=== PATIENT | male | born 1975 | race Caucasian/White ===

== ENCOUNTER 2017-01-14 16:14 | Emergency (ER) | payer OTHER ==
[~2017-01-14] VITALS: Ht 182.9 cm; Wt 113.4 kg
[2017-01-14 17:50] LABS: BASOPHILS % (AUTO) 0 % (0-10); EOSINOPHILS # (AUTO) 0.2 10^3/uL (0.0-0.3); EOSINOPHILS % (AUTO) 2 % (0-10); LYMPHOCYTES # (AUTO) 2.8 X 10^3 (1.0-4.0); LYMPHOCYTES % (AUTO) 31 % (12-44); MEAN CORPUSCULAR HEMOGLOBIN 31 PG (25-34); MEAN CORPUSCULAR HGB CONC 34 G/DL (32-36); MEAN CORPUSCULAR VOLUME 89 FL (80-99); MEAN PLATELET VOLUME 10.8 FL (7.4-10.4); MONOCYTES # (AUTO) 0.9 X 10^3 (0.0-1.0); MONOCYTES % (AUTO) 9 % (0-12); NEUTROPHILS # (AUTO) 5.4 X 10^3 (1.8-7.8); NEUTROPHILS % (AUTO) 58 % (42-75); PLATELET COUNT 243 10^3/uL (130-400); RED BLOOD COUNT 4.53 10^6/uL (4.35-5.85); RED CELL DISTRIBUTION WIDTH 13.1 % (10.0-14.5); WHITE BLOOD COUNT 9.3 10^3/uL (4.3-11.0)
[2017-01-14 17:53] LABS: PROTHROMBIN TIME PATIENT 12.8 SEC (12.2-14.7)
[2017-01-14] MEDS ORDERED: ASPIRIN 81 MG CHEW (CHILDREN'S ASA) PO ONE (18:00)
[2017-01-14] MEDS ORDERED: RX-NITROGLYCERIN 0.4 MG TAB BTL 25'S SL PRN (18:00)
[2017-01-14 18:03] LABS: ALANINE AMINOTRANSFERASE 18 U/L (0-55); ALBUMIN 4.3 G/DL (3.2-4.5); ANION GAP 11 MMOL/L (5-14); ASPARTATE AMINO TRANSFERASE 18 U/L (5-34); BILIRUBIN,TOTAL 0.4 MG/DL (0.1-1.0); BLOOD UREA NITROGEN 8 MG/DL (7-18); BUN/CREATININE RATIO 8; CALCIUM 9.7 MG/DL (8.5-10.1); CARBON DIOXIDE 23 MMOL/L (21-32); CHLORIDE 105 MMOL/L (98-107); CREATININE SERUM 0.99 MG/DL (0.60-1.30); GFR ESTIMATED > 60; GLUCOSE 125 MG/DL (70-105); MAGNESIUM 1.9 MG/DL (1.8-2.4); POTASSIUM 3.6 MMOL/L (3.6-5.0); SODIUM 139 MMOL/L (135-145); TOTAL PROTEIN 7.5 G/DL (6.4-8.2)
--- NOTE | 2017-01-14 18:03 | ED Chest Pain ---
General Chief Complaint: Cardiac/General Problems Stated Complaint: HIGH BLOOD PRESSURE Nursing Triage Note: PT AMBULATED TO ROOM. PT STATES HE IS HAVING HIGH BLOOD PRESSURE, HANDS ARE TINGLING, PRESSURE IN HIS CHEST ALL FOR ABOUT 2-3 HOURS TODAY. Nursing Sepsis Screen: No Definite Risk Source: patient Exam Limitations: no limitations History of Present Illness Time seen by provider: 17:40 Initial Comments This 41-year-old gentleman with known coronary artery disease and hypertension presents to the emergency room with complaints of chest pressure for a few hours prior to presentation. Associated symptoms include tingling in the extremities and upper back, lightheadedness, and a generalized feeling that something not right. He takes multiple medications for hypertension including furosemide which he stopped about 10 days ago due to hot weather. 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 Blood pressure is notably elevated on assessment. Patient also reports he recently took doxycycline for an inflamed tick bite. He does smoke and does have a history of coronary artery disease with dissolvable stent placement. He reports this was an experimental therapy. He rarely drinks alcohol and denies any drug use. He took his medications except for furosemide this morning. He has not taken any aspirin. He recently moved to the area and has no local providers yet. Patient reports some type of cardiac event in October in which he reports an elevated troponin. This occurred in [place], [place]. A heart catheterization was not performed. Allergies and Home Medications Allergies Coded Allergies: No Known Drug Allergies (Unverified , 01/14/17) Review of Systems Constitutional: no symptoms reported EENTM: No Symptoms Reported Respiratory: No Symptoms Reported Cardiovascular: See HPI Gastrointestinal: No Symptoms Reported Genitourinary: No Symptoms Reported Musculoskeletal: no symptoms reported Skin: no symptoms reported Psychiatric/Neurological: See HPI Endocrine: No Symptoms Reported Hematologic/Lymphatic: No Symptoms Reported Past Pbwlvyk-Bgfmni-Ebusdx Hx Patient Social History Alcohol Use: Denies Use Recreational Drug Use: No Smoking Status: Current Everyday Smoker Type Used: Cigarettes 2nd Hand Smoke Exposure: Yes Recent Foreign Travel: No Contact w/Someone Who Travel: No Recent Infectious Disease Expo: No Recent Hopitalizations: No Seasonal Allergies Seasonal Allergies: No Surgeries HX Surgeries: Yes Surgeries: Coronary Stent (experimental dissolvable stent), Orthopedic (knee) Respiratory Hx Respiratory Disorders: Yes (tobaccoism) Cardiovascular Hx Cardiac Disorders: Yes (cardiomegaly) Cardiac Disorders: Coronary Artery Disease, High Cholesterol, Hypertension Neurological Hx Neurological Disorders: No Reproductive System Hx Reproductive Disorders: No Genitourinary Hx Genitourinary Disorders: No Gastrointestinal Hx Gastrointestinal Disorders: No Musculoskeletal Hx Musculoskeletal Disorders: No Endocrine Hx Endocrine Disorders: No HEENT HX ENT Disorders: No Cancer Hx Cancer: No Psychosocial Hx Psychiatric Problems: Yes Behavioral Health Disorders: Anxiety Integumentary HX Skin/Integumentary Disorder: Yes Family Medical History Significant Family History: Heart Disease, CAD Under 55 Years Old Physical Exam Vital Signs Vital Sign - Last 12Hours 01/14/17 16:26 Temp 98.2 Pulse 87 Resp 20 B/P (MAP) 164/109 Pulse Ox 96 O2 Delivery Room Air Capillary Refill : Less Than 3 Seconds General Appearance: No Apparent Distress, WD/WN HEENT: PERRL/EOMI, Normal ENT Inspection, Pharynx Normal Neck: Normal Inspection Respiratory: Chest Non Tender, Lungs Clear, Normal Breath Sounds, No Accessory Muscle Use, No Respiratory Distress Cardiovascular: Regular Rate, Rhythm, No Edema, No Murmur Gastrointestinal: Normal Bowel Sounds, Non Tender, Soft Extremity: Normal Inspection, Non Tender, No Calf Tenderness, No Pedal Edema, Pedal Edema, Other (negative Katya) Neurologic/Psychiatric: Alert, Oriented x3, No Motor/Sensory Deficits, Normal Mood/Affect, customer advisor specialist II-XII Norm as Tested Skin: Normal Color, Warm/Dry Progress/Results/Core Measures Results/Orders Lab Results Laboratory Tests Test 01/14/17 16:41 Range/Units White Blood Count 9.3 4.3-11.0 10^3/uL Red Blood Count 4.53 4.35-5.85 10^6/uL Hemoglobin 13.9 13.3-17.7 G/DL Hematocrit 40 40-54 % Mean Corpuscular Volume 89 80-99 FL Mean Corpuscular Hemoglobin 31 25-34 PG Mean Corpuscular Hemoglobin Concent 34 32-36 G/DL Red Cell Distribution Width 13.1 10.0-14.5 % Platelet Count 243 130-400 10^3/uL Mean Platelet Volume 10.8 H 7.4-10.4 FL Neutrophils (%) (Auto) 58 42-75 % Lymphocytes (%) (Auto) 31 12-44 % Monocytes (%) (Auto) 9 0-12 % Eosinophils (%) (Auto) 2 0-10 % Basophils (%) (Auto) 0 0-10 % Neutrophils # (Auto) 5.4 1.8-7.8 X 10^3 Lymphocytes # (Auto) 2.8 1.0-4.0 X 10^3 Monocytes # (Auto) 0.9 0.0-1.0 X 10^3 Eosinophils # (Auto) 0.2 0.0-0.3 10^3/uL Basophils # (Auto) 0.0 0.0-0.1 10^3/uL Prothrombin Time 12.8 12.2-14.7 SEC INR Comment 1.0 0.8-1.4 Activated Partial Thromboplast Time 26 24-35 SEC Sodium Level 139 135-145 MMOL/L Potassium Level 3.6 3.6-5.0 MMOL/L Chloride Level 105 98-107 MMOL/L Carbon Dioxide Level 23 21-32 MMOL/L Anion Gap 11 5-14 MMOL/L Blood Urea Nitrogen 8 7-18 MG/DL Creatinine 0.99 0.60-1.30 MG/DL Estimat Glomerular Filtration Rate > 60 BUN/Creatinine Ratio 8 Glucose Level 125 H 70-105 MG/DL Calcium Level 9.7 8.5-10.1 MG/DL Magnesium Level 1.9 1.8-2.4 MG/DL Total Bilirubin 0.4 0.1-1.0 MG/DL Aspartate Amino Transf (AST/SGOT) 18 5-34 U/L Alanine Aminotransferase (ALT/SGPT) 18 0-55 U/L Alkaline Phosphatase 45 40-136 U/L Myoglobin 66.7 10.0-92.0 NG/ML Troponin I < 0.30 <0.30 NG/ML B-Type Natriuretic Peptide < 10.0 <100.0 PG/ML Total Protein 7.5 6.4-8.2 G/DL Albumin 4.3 3.2-4.5 G/DL TSH [place] Testing 1.30 0.35-4.94 UIU/ML My Orders Orders - KAYLENE MCMULLEN MD Cbc With Automated Diff (01/14/17 17:43) Magnesium (01/14/17 17:43) Chest 1 View, Ap/Pa Only (01/14/17 17:43) Ekg Tracing (01/14/17 17:43) Cardiac Profile 1 (01/14/17 17:43) Comprehensive Metabolic Panel (01/14/17 17:43) Myoglobin Serum (01/14/17 17:43) Protime With Inr (01/14/17 17:43) Partial Thromboplastin Time (01/14/17 17:43) O2 (01/14/17 17:43) Monitor-Rhythm Ecg Trace Only (01/14/17 17:43) Saline Lock/Iv-Start (01/14/17 17:43) Thyroid Analyzer (01/14/17 17:43) BNP (01/14/17 17:52) Aspirin Chewable Tablet (Baby Aspirin Ch (01/14/17 18:00) Rx-Nitroglycerin Sl Tabs (Rx-Nitrostat S (01/14/17 18:00) Medications Given in ED Vital Signs/I&O Vital Sign - Last 12Hours 01/14/17 01/14/17 16:26 19:00 Temp 98.2 98.2 Pulse 87 87 Resp 20 20 B/P (MAP) 164/109 Pulse Ox 96 96 O2 Delivery Room Air Blood Pressure Mean: 127 Progress Note #1: Time: 18:52 Progress Note Aspirin was given. Pain is decreased to 2/10 after nitroglycerin 2. Patient declined a third nitroglycerin since he is feeling better. Progress Note #2: Progress Note Admission was advised as patient has cardiac history, pain has not completely resolved, and pain is improved with nitroglycerin. Patient refused admission and signed out AMA. I did notify Dr. Martinez and he requested that the patient see him in the office tomorrow. Contact information was provided. I did explain to the patient that he may be leaving with a potentially life- threatening condition. Patient expressed understanding but requested AMA papers regardless. ECG Initial ECG Impression Date: Jan 14, 2017 Initial ECG Impression Time: 18:05 Initial ECG Rate: 83 Initial ECG Rhythm: Normal Sinus Initial ECG Intervals: Normal Initial ECG Impression: Normal Comment Normal sinus rhythm with no ST elevation or depression. No abnormal intervals or axis deviation. Diagnostic Imaging Diagonstic Imaging: Xray Plain Films/CT/US/NM/MRI: chest Comments Chest x-ray viewed by me and report reviewed. See report below: NAME: RADHA CORRALES [facility] REC#: [id number] PT STATUS: REG ER : 1975 PHYSICIAN: KAYLENE MCMULLEN MD ADMIT DATE: 01/14/17/ER Draft Date of Exam:01/14/17 CHEST 1 VIEW, AP/PA ONLY INDICATION: Left-sided chest pressure. Hypertension. TECHNIQUE: Single-view chest. CORRELATION STUDY: None. FINDINGS: Heart size is borderline. Vasculature is within normal limits. No infiltrate. Increased density in the lung apices favoring probable hypertrophic changes of the anterior first ribs. IMPRESSION: 1. Negative portable chest. Dictated on workstation # [id number] Dict: 01/14/171816 Trans: 01/14/171828 [id number] Interpreted by: DARNELL SWEENEY DO Departure Impression Impression: Primary Impression: Chest pain Qualified Codes: R07.9 - Chest pain, unspecified Additional Impressions: Hypertensive urgency Coronary artery disease Qualified Codes: I25.10 - Atherosclerotic heart disease of [place] coronary artery without angina pectoris Disposition: ADMITTED INPATIENT Condition: Improved Decision to Admit Reason: Admit from ER (General) Decision to Admit/Date: Jan 14, 2017 Time/Decision to Admit Time: 18:00 Departure-Patient Inst. Referrals: SANDY MARTINEZ MD FACP FACC CCDS NO,LOCAL PHYSICIAN (PCP) Primary Care Physician Patient Instructions: Chest Pain (DC) Add. Discharge Instructions: Please be advised that admission to the hospital as recommended. You may be returning home with a potentially fatal condition. Contact a primary care provider and consumer insight analyst as soon as possible. Return to the ER symptoms worsen. Continue with your home medications as previously prescribed. Call Dr. Martinez's office at 8:00 am for an appointment. All discharge instructions reviewed with patient and/or family. Voiced understanding. Work/School Note: Work Release Form Date Seen in the Emergency Department: Jan 14, 2017 Restrictions: Need Release from Doctor Other Restrictions Listed Below: May not return to work until cleared by consumer insight analyst KAYLENE MCMULLEN MD Jan 14, 2017 18:03
[2017-01-14 18:10] LABS: MYOGLOBIN SERUM 66.7 NG/ML (10.0-92.0)
--- NOTE | 2017-01-14 18:29 | Diagnostic Imaging Report ---
INDICATION: Left-sided chest pressure. Hypertension. TECHNIQUE: Single-view chest. CORRELATION STUDY: None. FINDINGS: Heart size is borderline. Vasculature is within normal limits. No infiltrate. Increased density in the lung apices favoring probable hypertrophic changes of the anterior first ribs. IMPRESSION: 1. Negative portable chest. Dictated by: Dictated on workstation # [id number]
[2017-01-14 19:00] VITALS: BP 164/109
--- OUTSIDE RECORDS SUMMARY | 2017-01-25 15:41 | XMS REPORT ---
Author YOMI Roldan [facility] eClinicalWorks Address Unknown Phone Unavailable Care Team Providers Care Medical Research Assistant Name Role Phone YOMI RIVAS Unavailable Allergies No Known Allergies Problems Problem Type Condition Code Onset Dates Condition Status Problem Essential hypertension I10 Active Medications Medication Code System Code Instructions Start Date End Date Status Dosage Atorvastatin Calcium [facility] [address]-04 10 mg Orally Once a day May 31, 2016 1 tablet Fish Oil [facility] [address]-81 1000 MG Orally Once a day May 31, 2016 1 capsule Results No Known Results Summary Purpose eClinicalWorks Submission
--- OUTSIDE RECORDS SUMMARY | 2017-01-25 15:41 | XMS REPORT ---
Author Author YOMI RIVAS Organization eClinicalWorks Address Unknown Phone Unavailable Care Team Providers Care Jig Grinder Name Role Phone YOMI RIVAS CP Unavailable Allergies, Adverse Reactions, Alerts Substance Reaction Event Type N.K.D.A. Info Not Available Non Drug Allergy Problems Problem Type Condition Code Onset Dates Condition Status Assessment Essential hypertension I10 Active Problem Essential hypertension I10 Active Medications Medication Code System Code Instructions Start Date End Date Status Dosage Metoprolol Tartrate [facility] [address]-43 50 mg Orally Twice a day May 25, 2016 1 tablet with food Hydrochlorothiazide [facility] [address]-51 25 MG Orally Once a day May 25, 2016 1 tablet Procedures Procedure Coding System Code Date LIPID PANEL CPT-4 24999 May 25, 2016 DRUG SCREEN NON TLC DEVICES CPT-4 27545 May 25, 2016 COMPREHEN METABOLIC PANEL CPT-4 80495 May 25, 2016 MICROALBUMIN, SEMIQUANT CPT-4 37259 May 25, 2016 ASSAY THYROID STIM HORMONE CPT-4 51349 May 25, 2016 COMPLETE CBC W/AUTO DIFF WBC CPT-4 82083 May 25, 2016 Office Visit, New Pt., Level 4 CPT-4 89974 May 25, 2016 VENIPUNCT, ROUTINE* CPT-4 96169 May 25, 2016 Vital Signs Date/Time: May 25, 2016 Cardiac Monitoring Heart Rate 74 bpm Weight 256 lbs Height 6 ft 1 in in BMI 33.77 Index Blood Pressure Diastolic 110 mmHg Blood Pressure Systolic 155 mmHg Results Name Result Date Reference Range Unit Abnormality Flag ROUTINE VENIPUNCTURE MICROALBUMIN, URINE (IN HOUSE) ----A:C (IN HOUSE) <30 [id number] ----CRE 200 [id number] ----Color yellow [id number] ----ALB 10 [id number] ----Exp date [id number] ----Clarity Clear [id number] ----Lot # [id number] Summary Purpose eClinicalWorks Submission
== END 2017-01-14 19:00 | disposition left against medical advice (07) ==
LOC: EDUNIT# 16:14 → ER 16:18
DX: R07.89 Other chest pain (principal); I10 Essential (primary) hypertension; I25.10 Atherosclerotic heart disease of native coronary artery without angina pectoris; F17.210 Nicotine dependence, cigarettes, uncomplicated; Z95.5 Presence of coronary angioplasty implant and graft
CPT/HCPCS: 36415; 71010; 80053; 83735; 83874; 83880; 84443; 84484; 85025; 85610; 85730; 93005; 93041

== ENCOUNTER → 2017-01-17 | Outpatient (CLI) | payer OTHER ==
--- NOTE | 2017-01-18 23:18 | ECHOCARDIOGRAPHY REPORT ---
DATE OF SERVICE: 01/17/2017 PROCEDURE: ECHOCARDIOGRAPHY REPORT ORDERING PHYSICIAN: Dr. Martinez. CLINICAL DIAGNOSES: Chest discomfort, hypertension. MEASUREMENTS: Left atrium 3.4. Aortic root 3.8. LV diameter diastolic 5. IVS thickness, diastolic 1. LVPW thickness, diastolic 1.1 DESCRIPTION: Two-dimensional echocardiography shows normal global left ventricular systolic function with normal regional wall motion. Aortic, mitral and tricuspid valve leaflets show good leaflet excursion. There is no significant pericardial effusion. Doppler imaging does not indicate any significant valvular regurgitation or stenosis. There is no evidence of any significant intracardiac shunt on this transthoracic echocardiographic study. The inferior vena cava appears to be of normal size and does exhibit inspiratory collapse. CONCLUSIONS: 1. Normal global left ventricular systolic function with ejection fraction approximately 65%. 2. No significant valvular regurgitation or stenosis. Job ID: [id number] DocumentID: [id number] Dictated Date: 01/18/2017 13:24:34 Director Of Product Marketing Date: 01/18/2017 13:51:47 Dictated By: SANDY MARTINEZ MD, MA, FACP, FACC,
== END ==
LOC: CARD 13:04
PROVIDERS: ATTEND Internal Medicine Cardiovascular Disease
DX: I10 Essential (primary) hypertension (principal); E78.4 Other hyperlipidemia; R07.89 Other chest pain; Z72.0 Tobacco use; Z82.49 Family history of ischemic heart disease and other diseases of the circulatory system
CPT/HCPCS: 93225; 93226; 93306

== ENCOUNTER 2017-01-22 07:10 | Day surgery (SDC) | payer OTHER ==
[2017-01-22] VITALS (10 sets, daily range): BP systolic 119–154; BP diastolic 75–101
[~2017-01-22] VITALS: Ht 182.9 cm; Wt 116.1 kg
[2017-01-22] MEDS ORDERED: NS IV 1000 ML 1,000 ML ONE (07:12)
[2017-01-22] MEDS ORDERED: HEParin (CATH LAB) 2,000 ML IV ONE (07:12)
[2017-01-22] MEDS ORDERED: NS IV 1000 ML 1,000 ML IV SCH ×2 (07:45→09:59)
[2017-01-22 07:46] LABS: MEAN PLATELET VOLUME 10.5 FL (7.4-10.4); RED BLOOD COUNT 4.71 10^6/uL (4.35-5.85); RED CELL DISTRIBUTION WIDTH 12.9 % (10.0-14.5); WHITE BLOOD COUNT 8.7 10^3/uL (4.3-11.0)
[2017-01-22 08:01] LABS: INR 0.9 (0.8-1.4); PROTHROMBIN TIME PATIENT 11.9 SEC (12.2-14.7)
[2017-01-22] MEDS ORDERED: ALPR0.254 PO (08:05)
[2017-01-22] MEDS ORDERED: MAGN400T6 PO (08:05)
[2017-01-22] MEDS ORDERED: FURO40TA4 PO (08:05)
[2017-01-22] MEDS ORDERED: POTA-51 PO (08:05)
[2017-01-22] MEDS ORDERED: ATOR20TA66 PO (08:05)
[2017-01-22] MEDS ORDERED: ASPI-983 PO (08:05)
[2017-01-22] MEDS ORDERED: METO-274 PO (08:05)
[2017-01-22 08:10] LABS: ALANINE AMINOTRANSFERASE 20 U/L (0-55); ALBUMIN 4.2 G/DL (3.2-4.5); ANION GAP 10 MMOL/L (5-14); ASPARTATE AMINO TRANSFERASE 22 U/L (5-34); BILIRUBIN,TOTAL 0.4 MG/DL (0.1-1.0); BLOOD UREA NITROGEN 13 MG/DL (7-18); BUN/CREATININE RATIO 13; CALCIUM 9.7 MG/DL (8.5-10.1); CARBON DIOXIDE 24 MMOL/L (21-32); CHLORIDE 103 MMOL/L (98-107); CHOLESTEROL 207 MG/DL (< 200); CREATININE SERUM 1.03 MG/DL (0.60-1.30); DIRECT LDL 120 MG/DL (1-129); GFR ESTIMATED > 60; GLUCOSE 184 MG/DL (70-105); POTASSIUM 4.1 MMOL/L (3.6-5.0); SODIUM 137 MMOL/L (135-145); TOTAL PROTEIN 7.5 G/DL (6.4-8.2); TRIGLYCERIDES 285 MG/DL (<150); VLDL CHOLESTEROL 57 MG/DL (5-40)
[2017-01-22] MEDS ORDERED: fentaNYL INJECTION 100 MCG/2 ML AMP ONE (08:38)
[2017-01-22] MEDS ORDERED: MIDAZOLAM 5 MG/5 ML (VERSED) VIAL ONE (08:38)
[2017-01-22] MEDS ORDERED: diphenhydrAMINE 50 MG/ML INJ (BENADRYL) ONE (08:38)
--- NOTE | 2017-01-22 09:56 | Cardiac Procedure Note-CS/ASA ---
Pre-Procedure Note Pre-Op Procedure Note H&P Reviewed The H&P was reviewed, patient examined and no changes noted. Date H&P Reviewed: Jan 22, 2017 Time H&P Reviewed: 09:20 Conscious Sedation Pre-Proced Time Reviewed: 09:20 ASA Class: 2 Airway Mallampati Classification: (moapa appropriate class) I. II. III, IV Lungs Heart ASA score ASA 1: a normal healthy patient ASA 2: a patient with a mild systemic disease (mid diabetes, controlled hypertension, obesity ASA 3: a patient with a severe systemic disease that limits activity (angina , COPD, prior Myocardial infarction) ASA 4: a patient with an incapacitating disease that is a constant threat to life (CHF, renal failure) ASA 5: a moribund patient not expected to survive 24 hrs. (ruptured aneurysm) ASA 6: a declared brain patient whose organs are being harvested. For emergent operations, add the letter E after the classification Grade 2 Sedation Plan: Analgesia, Amnesia, Plan communicated to team members, Discussed options with patient/fam, Discussed risks with patient/fam Note The patient is an appropriate candidate to undergo the planned procedure, sedation, and anesthesia. The patient immediately re-assessed prior to indication. SANDY RAIN MD FACP FACC CCDS Jan 22, 2017 09:56
[2017-01-22] MEDS ORDERED: PATIENT MAY USE OWN MEDS, ALL PO SCH (10:00)
--- NOTE | 2017-01-22 10:10 | Discharge Inst-Cardiology ---
Discharge Inst-Cardiac Discharge Medications Continued Medications: Alprazolam (Alprazolam) 0.25 Mg Tablet 0.25 MG PO HS, TAB Aspirin (Aspirin EC) 81 Mg Tablet.dr 81 MG PO DAILY, TAB Atorvastatin Calcium (Atorvastatin Calcium) 20 Mg Tablet 20 MG PO DAILY, TAB Furosemide (Furosemide) 40 Mg Tablet 40 MG PO DAILY, TAB Magnesium Oxide (Magnesium Oxide) 400 Mg Tablet 400 MG PO DAILY, TAB Metoprolol Succinate (Metoprolol Succinate) 100 Mg Tab.er.24h 100 MG PO BID, TAB Potassium Chloride (Potassium Chloride) 20 Meq Tablet.er 20 MEQ PO DAILY, TAB Patient Instructions Patient Instructions: No tobacco use SANDY RAIN MD FACP FACC CCDS Jan 22, 2017 10:10
--- NOTE | 2017-01-22 10:11 | Discharge Inst-Post CATH ---
Discharge Inst-CATH Post Cardiac Cath D/C Inst Follow Up/Plan F/u at Dr Martinez's office in 2-3 weeks CARDIAC CATH DISCHARGE INSTRUCTIONS *Hold Metformin for 48 hours post heart cath. ACTIVITY * Go Home directly and rest. * Limit activity of the leg (or wrist if it was used) for 7 days including aerobics, swimming, jogging, bicycling, etc. * Restrict stair-climbing for 7 days if possible, if not, climb up with your non -cath leg, then bring together on the same step. * Avoid lifting, pushing, pulling or excessive movement of the affected extremity for 7 days. * Customary sexual activity may be resumed after 2 days-use caution not to use a position that strains or causes pain to the affected extremity. * No driving for 24 hours. * NO SMOKING. * Avoid straining for bowel movements for 7 days. * Gentle walking on level ground is allowed. * Returning to work will depend on the type of procedure and the results. Your doctor will discuss this with you. CALL YOUR DOCTOR FOR ANY OF THE FOLLOWING: *If bleeding from the puncture site occurs- Apply gentle pressure to site with clean cloth and call your doctor or EMS. * If a knot or lump forms under the skin, increases in size, or causes pain. * If bruising appears to be worsening or moving further down your leg instead of disappearing. * Temperature above 101 F. CARE OF YOUR GROIN INCISION; * Bruising or purple discoloration of the skin near the puncture site is common. * You may shower only, no bathtub bathing for 5 days. Be careful to avoid slipping as your leg may feel stiff. * If a closure device was used on your femoral artery, please see the attached guide regarding care of the device and your leg. * REMOVE the dressing from your groin the next day after your procedure in the shower. CARE OF YOUR WRIST INCISION; * Bruising or purple discoloration of the skin near the puncture site is common. * You may shower. * DO NOT submerge wrist. * Remove dressing in 24 hours. SANDY MARTINEZ MD FACP [facility] CCDS Jan 22, 2017 10:11
--- NOTE | 2017-01-22 13:20 | CARDIAC CATHETERIZATION ---
DATE OF SERVICE: 01/22/2017 CARDIAC CATHETERIZATION The patient is a 41-year-old man with multiple coronary artery disease risk factors and who has been experiencing chest discomfort consistent with new onset angina. Cardiac catheterization was carried out today after having obtained an informed consent. DESCRIPTION OF PROCEDURE: He was brought to the cardiac catheterization laboratory in a fasting state. The right groin was prepared and draped in the usual sterile fashion. Lidocaine 1% for local anesthesia. Modified Seldinger technique was used to advance a 5-Chinese sheath in the right femoral artery. A 5-Chinese JL4 catheter was used for left coronary angiography and JR4 catheter was used right coronary angiography. A 5-Chinese pigtail catheter was used for left heart catheterization and left ventricular angiography. The pigtail catheter was pulled back to the aortic root and aortic root angiography was performed. It was then pulled back to the aortic arch and aortic arch angiography was performed. The catheter was removed. Angiography of the right femoral artery was carried out through the sheath at the time of sheath initiation. At the end of the procedure, Mynx was used to achieve hemostasis. He tolerated the procedure well. HEMODYNAMICS: Left ventricular end-diastolic pressure following coronary angiography was 12 mmHg. There was no significant pressure gradient on pullback across the aortic valve. Ascending aortic pressure was 121/79 with a mean of 99 mmHg. LEFT VENTRICULAR ANGIOGRAPHY: Left ventricular angiography was carried out in the right anterior oblique projection. Global left ventricular systolic function was normal. No distinct regional wall motion abnormalities were seen in this view. Left ventricular ejection fraction is 55% to 60%. There does not appear to be significant mitral regurgitation. CORONARY ANGIOGRAPHY: Left main coronary artery is free of significant disease. Left anterior descending and left circumflex arteries have minor plaques. Right coronary artery is dominant and has minor plaques. AORTIC ROOT ANGIOGRAPHY: Aortic root angiography did not indicate any significant ascending aortic aneurysm or dissection. There is no significant aortic regurgitation. AORTIC ARCH ANGIOGRAPHY: Aortic arch angiography did not indicate any thoracic aortic aneurysm or dissection. The neck arteries were identified and do not exhibit significant disease. The left vertebral artery has a low, proximal origin. CONCLUSIONS: 1. Angiographically minor coronary artery disease. 2. Normal global left ventricular systolic function with ejection fraction of 55% to 60%. 3. Normal left ventricular end-diastolic pressure. 4. No significant mitral regurgitation. DISCUSSION AND RECOMMENDATIONS: Based on results of the study, chest discomfort does not appear to be of cardiac origin. Continuing risk factor modification is advised. This was discussed with him in detail. Outpatient followup is advised. Job ID: [id number] DocumentID: [id number] Dictated Date: 01/22/2017 10:18:30 Chronometer Repairer Date: 01/22/2017 12:20:18 Dictated By: SANDY RAIN MD, MA, FACP, FACC,
== END 2017-01-22 13:20 | disposition home or self-care (01) ==
LOC: CATH 07:10 → SURG 10:06 → CATH 13:20
PROVIDERS: ATTEND Internal Medicine Cardiovascular Disease
DX: R07.89 Other chest pain (principal); I25.10 Atherosclerotic heart disease of native coronary artery without angina pectoris; I10 Essential (primary) hypertension; R06.02 Shortness of breath; E78.5 Hyperlipidemia, unspecified; Z82.49 Family history of ischemic heart disease and other diseases of the circulatory system; Z72.0 Tobacco use; Z79.899 Other long term (current) drug therapy
CPT/HCPCS: 36221; 36415; 80053; 80061; 85027; 85610; 85730; 87081; 93458; 93567

== ENCOUNTER 2017-09-07 19:52 | Emergency (ER) | payer OTHER ==
[~2017-09-07] VITALS: Ht 182.9 cm; Wt 113.4 kg
[~2017-09-07 19:52] MED LIST: ALPR0.254 PO; ASPI-983 PO; ATOR20TA66 PO; FURO40TA4 PO; MAGN400T6 PO; METO-395 PO; POTA-51 PO
[2017-09-07] MEDS ORDERED: RX-GENTAMICIN 0.3% OP OINT 3.5 GM TUBE OP STA (20:22)
[2017-09-07] MEDS ORDERED: TETRACAINE 0.5% OPHTH SOLN 4 ML BTL (SINGLE DOSE ONLY) OP ONE (20:30)
[2017-09-07] MEDS ORDERED: BSS 15 ML IR ONE (20:30)
[2017-09-07] MEDS ORDERED: FLUORESCEIN (FLUOR-I-STRIPS) 1 MG STRP OU ONE (20:30)
[2017-09-07] MEDS ORDERED: RX-HYDROCODONE/APAP 5/325 MG #4 TAB PK PO PRN (20:30)
--- NOTE | 2017-09-07 20:33 | ED EENT ---
History of Present Illness General Stated Complaint: FLASH BURN Source: patient Exam Limitations: no limitations History of Present Illness Date Seen by Provider: Sep 07, 2017 Time Seen by Provider: 20:30 Initial Comments To ER with reports of "burn to both eyes" from welding today. Timing/Duration: gradual Severity: moderate Location: eye (R), eye (L) Allergies and Home Medications Allergies Coded Allergies: No Known Drug Allergies (Unverified , 01/14/17) Home Medications Alprazolam 0.25 Mg Tablet, 0.25 MG PO HS, (Reported) Aspirin 81 Mg Tablet.dr, 81 MG PO DAILY, (Reported) Atorvastatin Calcium 20 Mg Tablet, 20 MG PO DAILY, (Reported) Furosemide 40 Mg Tablet, 40 MG PO DAILY, (Reported) Magnesium Oxide 400 Mg Tablet, 400 MG PO DAILY, (Reported) Metoprolol Succinate 100 Mg Tab.er.24h, 100 MG PO BID, (Reported) Potassium Chloride 20 Meq Tablet.er, 20 MEQ PO DAILY, (Reported) Review of Systems Constitutional: see HPI Eyes: See HPI, Foreign Body Sensation, Pain Ears: No Symptoms Reported Nose: no symptoms reported Mouth: no symptoms reported Throat: no symptoms reported Respiratory: no symptoms reported Cardiovascular: no symptoms reported Musculoskeletal: no symptoms reported Skin: no symptoms reported Neurological: No Symptoms Reported Hematologic/Lymphatic: No Symptoms Reported Immunological/Allergic: no symptoms reported Past Lkmgppk-Fdmqoe-Gttlet Hx Patient Social History Type Used: Cigarettes 2nd Hand Smoke Exposure: Yes Recent Foreign Travel: No Contact w/Someone Who Travel: No Recent Hopitalizations: No Seasonal Allergies Seasonal Allergies: No Surgeries Surgeries: Coronary Stent, Orthopedic Respiratory History of Respiratory Disorde: No Cardiovascular History of Cardiac Disorders: Yes Cardiac Disorders: Coronary Artery Disease, High Cholesterol, Hypertension Neurological History of Neurological Disord: No Reproductive System Hx Reproductive Disorders: No Genitourinary History of Genitourinary Disor: No Gastrointestinal History of Gastrointestinal Di: No Musculoskeletal History of Musculoskeletal Dis: No Endocrine History of Endocrine Disorders: No HEENT History of HEENT Disorders: No Cancer History of Cancer: No Psychosocial History of Psychiatric Problem: No Behavioral Health Disorders: Anxiety Integumentary History of Skin or Integumenta: No Blood Transfusions History of Blood Disorders: No Family Medical History Significant Family History: Heart Disease, CAD Under 55 Years Old Physical Exam Vital Signs Vital Sign - Last 12Hours 09/07/17 20:25 Temp 97.0 Pulse 78 Resp 20 B/P (MAP) 177/121 (139) Pulse Ox 96 General Appearance: WD/WN, no apparent distress Eyes: bilateral eye other (bilateral conjunctival erhtyema without abrasion or ulcers in either eye during fluorescein staining. Was able to open eyes without pain immediately after application of tetracaine opthalmic. Eyes then irrigated with BSS. Genoptik ointment applied bilaterally. Pt established with Dr webb and will follow up on saturday. ) Ears: bilateral ear auricle normal, bilateral ear canal normal, bilateral ear TM normal Neck: non-tender, full range of motion Cardiovascular: regular rate, rhythm, no murmur Respiratory: normal breath sounds, no respiratory distress, no accessory muscle use Neurologic/Psychiatric: alert, normal mood/affect, oriented x 3 Skin: normal color, warm/dry Progress/Results/Core Measures Results/Orders My Orders Orders - HALEY HIGGINS APRN Tetracaine 0.5% Ophth Kristi Sdv (Tetracai (09/07/17 20:30) Fluorescein Strips ([id number]-T-Rfmnbg) (09/07/17 20:30) Balanced Salt Irrigation Soln (Bss Irrig (09/07/17 20:30) Rx-Hydrocodone/Apap 5-325 Mg (Rx-Vicodin (09/07/17 20:30) Rx-Gentamicin Ophth Oint (Rx-Gentamicin (09/07/17 20:22) Medications Given in ED Current Medications Medications Dose Ordered Sig/Dante Route Start Time Stop Time Status Last Admin Dose Admin Acetaminophen/ Hydrocodone Bitart 1 ea Q4H PRN PO 09/07/17 20:30 09/07/17 20:37 1 EA Balanced Salt Solution 15 ml ONCE ONCE IR 09/07/17 20:30 09/07/17 20:31 DC 09/07/17 20:37 15 ML Fluorescein Sodium 1 mg ONCE ONCE OU 09/07/17 20:30 09/07/17 20:31 DC 09/07/17 20:37 1 MG Tetracaine HCl 1 OR 2 DROPS INTO AFFEC... ONCE ONCE OP 09/07/17 20:30 09/07/17 20:31 DC 09/07/17 20:37 4 ML Vital Signs/I&O Vital Sign - Last 12Hours 09/07/17 20:25 Temp 97.0 Pulse 78 Resp 20 B/P (MAP) 177/121 (139) Pulse Ox 96 Departure Impression Impression: Primary Impression: UV keratitis Disposition: 01 HOME, SELF-CARE Condition: Stable Departure-Patient Inst. Decision time for Depature: 20:33 Referrals: JUAN FRANCISCO WEBB OD, CHAD C MD (PCP/Family) Primary Care Physician Patient Instructions: NO INSTRUCTIONS GIVEN Add. Discharge Instructions: 1. Apply the antibiotic ointment to each eye 3 times a day for the next 2-3 days. Follow-up with Dr. Webb on Saturday if you're not completely better. 2. Return to ER for any intolerable pain, worsening vision or other concerns Scripts Hydrocodone/Acetaminophen ([place] 5-325 Tablet) 1 Each Tablet 1 EACH PO Q6H Y for PAIN-MODERATE TO SEVERE, #10 TAB Prov: HALEY HIGGINS APRN 09/07/17 Copy Copies To 1: JUAN FRANCISCO WEBB OD, PETER J APRN Sep 07, 2017 20:33
[2017-09-07] MEDS ORDERED: HYDR-757 PO (20:45)
[2017-09-07 20:53] VITALS: BP 177/121
[2017-09-07] MEDS ORDERED: PROP10TA8 (21:04)
--- OUTSIDE RECORDS SUMMARY | 2017-09-08 11:00 | XMS REPORT ---
Author Author DONTAE PACHECO [facility] Address [address] [place] [address] Care Team Providers Care Manager Sales Training Name Role Phone DONTAE PACHECO Unavailable PROBLEMS Type Condition ICD9-CM Code LFA24-YG Code Onset Dates Condition Status SNOMED Code Problem Anxiety F41.9 Active 29573987 Problem Essential hypertension I10 Active [id number] ALLERGIES No Known Allergies SOCIAL HISTORY Never Assessed PLAN OF CARE VITAL SIGNS Height 73 in 2017-01-09 Weight 256 lbs 2017-01-09 Temperature 97.6 degrees Fahrenheit 2017-01-09 Heart Rate 88 bpm 2017-01-09 Respiratory Rate 16 2017-01-09 BMI 33.77 kg/m2 2017-01-09 Blood pressure systolic 120 mmHg 2017-01-09 Blood pressure diastolic 84 mmHg 2017-01-09 MEDICATIONS Medication Instructions Dosage Frequency Start Date End Date Duration Status Doxycycline Hyclate 100 mg Orally every 12 hrs 1 capsule 12h December, Jan, 10 days Active Potassium Chloride 20 MEQ Orally Once a day 1 packet with food 24h Active Xanax 0.25 MG Orally Twice a day 1 tablet 12h December, Active Atorvastatin Calcium 10 mg Orally Once a day 1 tablet 24h May, 30 day(s) Active Lasix 40 MG Orally Once a day 1 tablet 24h Active Fish Oil 1000 MG Orally Once a day 1 capsule 24h May, 30 day(s ) Active Aspir-81 81 MG Orally Once a day 1 tablet 24h Active Magnesium 300 MG Orally Once a day 1 capsule with a meal 24h Active Metoprolol Tartrate 100 MG Orally every 12 hrs 1 tablet with food 12h May, Active RESULTS No Results PROCEDURES No Known procedures IMMUNIZATIONS No Known Immunizations MEDICAL (GENERAL) HISTORY Type Description Date Medical History HTN Medical History Anxiety Surgical History right knee arthroscopic Surgical History Angioplasty 01/2017 Hospitalization History neck broke
== END 2017-09-07 20:56 | disposition home or self-care (01) ==
LOC: EDUNIT# 19:52 → ER 19:54
DX: H16.8 Other keratitis (principal); I25.10 Atherosclerotic heart disease of native coronary artery without angina pectoris; E78.00 Pure hypercholesterolemia, unspecified; I10 Essential (primary) hypertension; Z82.49 Family history of ischemic heart disease and other diseases of the circulatory system; Z77.22 Contact with and (suspected) exposure to environmental tobacco smoke (acute) (chronic); Z95.5 Presence of coronary angioplasty implant and graft; Z79.82 Long term (current) use of aspirin; W89.0XXA Exposure to welding light (arc), initial encounter
CPT/HCPCS: 99283

== ENCOUNTER 2018-08-12 18:17 | Observation (INO) | payer OTHER ==
[~2018-08-12] VITALS: Ht 185.4 cm; Wt 115.9 kg
[~2018-08-12 18:17] MED LIST changes: +HYDR-4226 PO; +PROP10TA8
[2018-08-12] MEDS ORDERED: ASPIRIN 81 MG CHEW (CHILDREN'S ASA) PO ONE (18:45)
[2018-08-12] MEDS ORDERED: meTOprolol 5 MG/5 ML (LOPRESSOR) VIAL IV ONE ×2 (18:45→19:45)
[2018-08-12 18:48] LABS: BASOPHILS % (AUTO) 0 % (0-10); EOSINOPHILS # (AUTO) 0.1 10^3/uL (0.0-0.3); EOSINOPHILS % (AUTO) 1 % (0-10); HEMATOCRIT 44 % (40-54); HEMOGLOBIN 15.7 G/DL (13.3-17.7); LYMPHOCYTES % (AUTO) 23 % (12-44); MEAN CORPUSCULAR HEMOGLOBIN 31 PG (25-34); MEAN CORPUSCULAR HGB CONC 36 G/DL (32-36); MEAN CORPUSCULAR VOLUME 87 FL (80-99); MEAN PLATELET VOLUME 10.8 FL (7.4-10.4); MONOCYTES % (AUTO) 12 % (0-12); NEUTROPHILS # (AUTO) 5.5 X 10^3 (1.8-7.8); NEUTROPHILS % (AUTO) 64 % (42-75); PLATELET COUNT 212 10^3/uL (130-400); RED CELL DISTRIBUTION WIDTH 12.8 % (10.0-14.5); WHITE BLOOD COUNT 8.6 10^3/uL (4.3-11.0)
--- NOTE | 2018-08-12 18:56 | NUR ---
REPORT GIVEN TO LAUREN.
[2018-08-12 18:59] LABS: PROTHROMBIN TIME PATIENT 12.9 SEC (12.2-14.7)
[2018-08-12 19:08] LABS: ALANINE AMINOTRANSFERASE 16 U/L (0-55); ALBUMIN 4.6 GM/DL (3.2-4.5); ALKALINE PHOSPHATASE 60 U/L (40-136); BILIRUBIN,TOTAL 0.8 MG/DL (0.1-1.0); BUN/CREATININE RATIO 6; CALCIUM 9.8 MG/DL (8.5-10.1); CARBON DIOXIDE 24 MMOL/L (21-32); CHLORIDE 99 MMOL/L (98-107); CREATINE KINASE 859 U/L (30-200); CREATININE SERUM 1.22 MG/DL (0.60-1.30); GFR ESTIMATED > 60; GLUCOSE 141 MG/DL (70-105); MAGNESIUM 1.8 MG/DL (1.8-2.4); POTASSIUM 3.9 MMOL/L (3.6-5.0); SODIUM 137 MMOL/L (135-145); TOTAL PROTEIN 8.3 GM/DL (6.4-8.2)
--- NOTE | 2018-08-12 19:12 | Diagnostic Imaging Report ---
INDICATION: Hypertension and palpitations starting 2 hours ago. Right shoulder pain.. TECHNIQUE: Single view chest 7:01 PM. CORRELATION STUDY: 01/14/2017 FINDINGS: The heart size, mediastinal configuration and pulmonary vascularity are within normal limits. The lungs are clear with no consolidating infiltrate. There is no significant effusion or pneumothorax. IMPRESSION: 1. Stable, negative appearing portable chest. Dictated by: Dictated on workstation # [id number]
[2018-08-12 19:28] LABS: MYOGLOBIN SERUM 215.3 NG/ML (10.0-92.0); TSH (THYROID ANALYZER) 0.52 UIU/ML (0.35-4.94)
[2018-08-12 19:30] LABS: CREATINE KINASE MB 9.8 NG/ML (<6.6)
[2018-08-12] MEDS ORDERED: NITROGLYCERIN 0.4 MG SL TABS BTL 25'S SL PRN (19:45)
[2018-08-12] MEDS ORDERED: NITROGLYCERIN 2% OINT 1 GM UNIT DOSE PACKET TOP ONE (19:45)
--- NOTE | 2018-08-12 20:10 | NUR ---
dr blake here seeing pt.
[2018-08-12] MEDS ORDERED: NS IV 1000 ML 1,000 ML ONE (20:24)
--- NOTE | 2018-08-12 20:43 | Consultation-Cardiology ---
HPI-Cardiology Cardiology Consultation Date of Consultation 08/12/18 Date of Admission Time Seen by Provider: 20:39 Indication: tachycardia, palpitation HPI 43 years old gentleman with history of hypertension, hyperlipidemia and family history of heart disease. Patient started to have palpitation, became diaphoretic, had some back pain and noted that his heart rate is around 135. Came into the emergency room. Given IV Lopressor, has been on metoprolol as an outpatient, heart rate is around 100. Denied any active chest pain, denied any syncope, felt his heart racing and had some palpitation. Denied any alcohol or illicit drug use, he is an active smoker and smoked about 3 cigarettes a day Home Medications & Allergies Allergies: Coded Allergies: No Known Drug Allergies (Unverified , 01/14/17) Home Medication List Reviewed: Yes XWH-Rwbmwv-Rdlpun Hx Patient Social History Marital Status: Employed/Student: employed Alcohol Use: Denies Use Recreational Drug Use: No Type Used: Cigarettes 2nd Hand Smoke Exposure: Yes Recent Foreign Travel: No Recent Infectious Disease Expo: No Recent Hopitalizations: No Past Medical History Past medical history as described below Family Medical History Significant Family History: Heart Disease, CAD Under 55 Years Old Family Medical Hx Noncontributory to his current condition Review of Systems Constitutional: see HPI EENTM: see HPI Respiratory: see HPI Cardiovascular: see HPI, palpitations Gastrointestinal: see HPI Genitourinary: see HPI Musculoskeletal: see HPI Skin: see HPI Psychiatric/Neurological: No Symptoms Reported, See HPI Reviewed Test Results Reviewed Test Results Lab Laboratory Tests Test 08/12/18 18:30 Range/Units White Blood Count 8.6 4.3-11.0 10^3/uL Red Blood Count 5.00 4.35-5.85 10^6/uL Hemoglobin 15.7 13.3-17.7 G/DL Hematocrit 44 40-54 % Mean Corpuscular Volume 87 80-99 FL Mean Corpuscular Hemoglobin 31 25-34 PG Mean Corpuscular Hemoglobin Concent 36 32-36 G/DL Red Cell Distribution Width 12.8 10.0-14.5 % Platelet Count 212 130-400 10^3/uL Mean Platelet Volume 10.8 H 7.4-10.4 FL Neutrophils (%) (Auto) 64 42-75 % Lymphocytes (%) (Auto) 23 12-44 % Monocytes (%) (Auto) 12 0-12 % Eosinophils (%) (Auto) 1 0-10 % Basophils (%) (Auto) 0 0-10 % Neutrophils # (Auto) 5.5 1.8-7.8 X 10^3 Lymphocytes # (Auto) 2.0 1.0-4.0 X 10^3 Monocytes # (Auto) 1.0 0.0-1.0 X 10^3 Eosinophils # (Auto) 0.1 0.0-0.3 10^3/uL Basophils # (Auto) 0.0 0.0-0.1 10^3/uL Prothrombin Time 12.9 12.2-14.7 SEC INR Comment 1.0 0.8-1.4 Activated Partial Thromboplast Time 27 24-35 SEC Sodium Level 137 135-145 MMOL/L Potassium Level 3.9 3.6-5.0 MMOL/L Chloride Level 99 98-107 MMOL/L Carbon Dioxide Level 24 21-32 MMOL/L Anion Gap 14 5-14 MMOL/L Blood Urea Nitrogen 7 7-18 MG/DL Creatinine 1.22 0.60-1.30 MG/DL Estimat Glomerular Filtration Rate > 60 BUN/Creatinine Ratio 6 Glucose Level 141 H 70-105 MG/DL Calcium Level 9.8 8.5-10.1 MG/DL Corrected Calcium 8.5-10.1 MG/DL Magnesium Level 1.8 1.8-2.4 MG/DL Total Bilirubin 0.8 0.1-1.0 MG/DL Aspartate Amino Transf (AST/SGOT) 39 H 5-34 U/L Alanine Aminotransferase (ALT/SGPT) 16 0-55 U/L Alkaline Phosphatase 60 40-136 U/L Total Creatine Kinase 859 H 30-200 U/L Creatine Kinase MB 9.8 *H <6.6 NG/ML Myoglobin 215.3 H 10.0-92.0 NG/ML Troponin I < 0.30 <0.30 NG/ML B-Type Natriuretic Peptide 14.9 <100.0 PG/ML Total Protein 8.3 H 6.4-8.2 GM/DL Albumin 4.6 H 3.2-4.5 GM/DL TSH Barry Testing 0.52 0.35-4.94 UIU/ML Serum Alcohol < 10 <10 MG/DL Physical Exam Vital Signs Vital Signs - First Documented 08/12/18 18:20 Temp 98.0 Pulse 124 Resp 16 B/P (MAP) 144/99 (114) Pulse Ox 96 O2 Delivery Room Air Capillary Refill : Less Than 3 Seconds Height, Weight, BMI Height: 6'0" Weight: 225lbs. 0.0oz. 102.478705ys; 34.7 BMI Method:Estimated General Appearance: No Apparent Distress, WD/WN Eyes: Bilateral Eye Normal Inspection, Bilateral Eye PERRL, Bilateral Eye EOMI HEENT: PERRL/EOMI, TMs Normal, Normal ENT Inspection, Pharynx Normal Neck: Full Range of Motion, Normal Inspection, Non Tender, Supple, Carotid Bruit Respiratory: Chest Non Tender, Lungs Clear, Normal Breath Sounds, No Accessory Muscle Use, No Respiratory Distress Cardiovascular: Regular Rate, Rhythm, No Edema, No Gallop, No JVD, No Murmur, Normal Peripheral Pulses Gastrointestinal: Normal Bowel Sounds, No Organomegaly, No Pulsatile Mass, Non Tender, Soft Back: Normal Inspection, No CVA Tenderness, No Vertebral Tenderness Extremity: Normal Capillary Refill, Normal Inspection, Normal Range of Motion, Non Tender, No Calf Tenderness, No Pedal Edema Neurologic/Psychiatric: Alert, Oriented x3, No Motor/Sensory Deficits, Normal Mood/Affect Skin: Normal Color, Warm/Dry Lymphatic: No Adenopathy A/P-Cardiology Admission Diagnosis Palpitation Sinus tachycardia Hypertension Hyperlipidemia Assessment/Plan Palpitation, sinus tachycardia, started on IV fluid and beta blockers. Continue to monitor tolerance and response Heart catheterization done in January [address] 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 Continue to monitor and hydrate with saline and encouraged to increase oral intake Hypertension, restart metoprolol and monitor blood pressure Hyperlipidemia, maintained on atorvastatin Patient has been taking Lasix. I instructed him to hold Lasix for now and monitor tolerance and response Family history of heart disease, father had heart disease in his 30s TREV BAJWA MD Aug 12, 2018 20:43
[2018-08-12] MEDS ORDERED: meTOprolol SUCCINATE 100 MG (TOPROL XL) TAB PO ONE (20:45)
[2018-08-12] MEDS: NS IV 1000 ML 1,000 ML IV SCH ×2 (20:52→23:15)
--- NOTE | 2018-08-12 21:45 | NUR ---
RADHA CORRALES admitted to room CU12-1, with an admitting diagnosis of CP,HTN, on 08/12/18 from DC via , accompanied by .RADHA CORRALES introduced to surroundings, call light, bed controls, phone, TV, temperature control, lights, meal times, smoking policy, visitor policy, side rail policy, bathrooms and showers. Patient Rights given to patient in the handbook. RADHA CORRALES verbalizes understanding that [facility] is not responsible for the loss or damage to any personal effects or valuables that are kept in the patients posession during their hospitalization. The following Patient Care Plans were discussed with the : Discharge Planning, ,, and . RADHA CORRALES verbalizes understanding of Interdisciplinary Patient Education. Patient and/or family were informed about the Rapid Response Team and its purpose.
[2018-08-12 21:46] VITALS: BP 119/87
[2018-08-12 21:50] VITALS: BP 122/82
[2018-08-12 22:00] VITALS: BP 125/73
[2018-08-12] MEDS ORDERED: morphine INJ 4 MG/ML 1 ML (VIAL/SYRINGE) IV PRN (22:00)
[2018-08-12] MEDS ORDERED: meTOprolol 5 MG/5 ML (LOPRESSOR) VIAL IV PRN (22:00)
[2018-08-12 22:15] VITALS: BP 138/90
[2018-08-12 23:00] VITALS: BP 122/81
[2018-08-12] MEDS: NITROGLYCERIN 2% OINT 1 GM UNIT DOSE PACKET TOP SCH (23:16)
[2018-08-13] VITALS (11 sets, daily range): BP systolic 91–140; BP diastolic 66–95
[2018-08-13 03:30] LABS: BASOPHILS % (AUTO) 0 % (0-10); EOSINOPHILS # (AUTO) 0.1 10^3/uL (0.0-0.3); EOSINOPHILS % (AUTO) 2 % (0-10); HEMATOCRIT 37 % (40-54); HEMOGLOBIN 13.3 G/DL (13.3-17.7); LYMPHOCYTES # (AUTO) 2.6 X 10^3 (1.0-4.0); LYMPHOCYTES % (AUTO) 40 % (12-44); MEAN CORPUSCULAR HEMOGLOBIN 32 PG (25-34); MEAN CORPUSCULAR HGB CONC 36 G/DL (32-36); MEAN CORPUSCULAR VOLUME 89 FL (80-99); MEAN PLATELET VOLUME 10.5 FL (7.4-10.4); MONOCYTES # (AUTO) 0.8 X 10^3 (0.0-1.0); MONOCYTES % (AUTO) 12 % (0-12); NEUTROPHILS # (AUTO) 3.1 X 10^3 (1.8-7.8); NEUTROPHILS % (AUTO) 47 % (42-75); PLATELET COUNT 199 10^3/uL (130-400); RED BLOOD COUNT 4.21 10^6/uL (4.35-5.85); WHITE BLOOD COUNT 6.6 10^3/uL (4.3-11.0)
[2018-08-13 03:58] LABS: ALANINE AMINOTRANSFERASE 15 U/L (0-55); ALBUMIN 3.8 GM/DL (3.2-4.5); ALKALINE PHOSPHATASE 46 U/L (40-136); BILIRUBIN,TOTAL 0.8 MG/DL (0.1-1.0); BUN/CREATININE RATIO 16; CALCIUM 9.1 MG/DL (8.5-10.1); CARBON DIOXIDE 21 MMOL/L (21-32); CHLORIDE 104 MMOL/L (98-107); CHOLESTEROL 179 MG/DL (< 200); CREATINE KINASE 532 U/L (30-200); CREATININE SERUM 0.83 MG/DL (0.60-1.30); GFR ESTIMATED > 60; GLUCOSE 141 MG/DL (70-105); HDL CHOLESTEROL 33 MG/DL (40-60); POTASSIUM 3.6 MMOL/L (3.6-5.0); SODIUM 138 MMOL/L (135-145); TOTAL PROTEIN 6.4 GM/DL (6.4-8.2); TRIGLYCERIDES 152 MG/DL (<150); VLDL CHOLESTEROL 30 MG/DL (5-40)
[2018-08-13] MEDS ORDERED: ACETAMINOPHEN 500 MG TAB (TYLENOL) PO PRN (04:15)
[2018-08-13 04:18] LABS: MYOGLOBIN SERUM 72.9 NG/ML (10.0-92.0)
[2018-08-13] MEDS: NITROGLYCERIN 2% OINT 1 GM UNIT DOSE PACKET TOP SCH (07:07)
[2018-08-13] MEDS ORDERED: ASPIRIN E.C. 81 MG (ECOTRIN) TAB PO SCH (09:00)
[2018-08-13] MEDS ORDERED: meTOprolol SUCCINATE 100 MG (TOPROL XL) TAB PO SCH (09:00)
--- NOTE | 2018-08-13 09:01 | Cardiology Progress Note ---
Subjective Date Seen by Provider: Aug 13, 2018 Time Seen by Provider: 08:59 Subjective/Events-last exam patient is laying down in bed, still having mild dizziness, had an episode of hypotension last night after receiving 100 mg metoprolol. Review of Systems General: No Chills, No Night Sweats, No Fatigue, No Malaise, No Appetite, No Other HEENT: No Head Aches, No Visual Changes, No Eye Pain, No Ear Pain, No Dysphasia , No Sinus Congestion, No Post Nasal Drip, No Sore Throat, No Other Pulmonary: No Dyspnea, No Cough, No Pleuritic Chest Pain, No Other Cardiovascular: No: Chest Pain, Palpitations, Orthopnea, Paroxysmal Noc. Dyspnea, Edema, Lt Headedness, Other Objective-Cardiology Exam Last Set of Vital Signs Vital Signs 08/12/18 08/13/18 21:38 06:00 Temp 98.0 Pulse 93 Resp 16 B/P (MAP) 115/81 (92) Pulse Ox 96 O2 Delivery Room Air Capillary Refill : Less Than 3 Seconds I&O Intake and Output 08/12/18 23:59 Daily Weight Change No General: Alert, Oriented X3, Cooperative HEENT: Atraumatic, PERRLA Neck: Supple, No JVD, No Thyromegaly Lungs: Clear to Auscultation, Normal Air Movement Heart: Regular Rate, Normal S1, Normal S2, No Murmurs Abdomen: Normal Bowel Sounds, Soft, No Tenderness, No Hepatosplenomegaly, No Masses Extremities: No Clubbing, No Cyanosis, No Edema, Normal Pulses, No Tenderness/ Swelling Skin: No Rashes, No Breakdown, No Significant Lesion Neuro: Normal Gait, Normal Speech, Strength at 5/5 X4 Ext, Normal Tone, Sensation Intact Psych/Mental Status: Mental Status NL, Mood NL Results Lab Laboratory Tests 08/12/18 18:30 08/13/18 03:15 A/P-Cardiology Admission Diagnosis Palpitation Sinus tachycardia Hypertension Hyperlipidemia Assessment/Plan Palpitation, sinus tachycardia, started on IV fluid and beta blockers. Continue to monitor tolerance and response Heart catheterization done in [place] [address] 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 numbers are improving today. Okay for discharge from cardiology standpoint Hypertension, transient episode of hypotension after receiving metoprolol 100 mg last night, I will decrease the dose and monitor as an outpatient Hyperlipidemia, maintained on atorvastatin Patient has been taking Lasix. I will discontinue Lasix for now and monitor as an outpatient Family history of heart disease, father had heart disease in his 30s Clinical Quality Measures DVT/VTE Risk/Contraindication: Risk Factor Score Per Nursin RFS Level Per Nursing on Admit: 2=Moderate TREV BAJWA MD Aug 13, 2018 09:01
[2018-08-13] MEDS ORDERED: ASCO10006 PO (09:03)
[2018-08-13] MEDS ORDERED: METO100T12 PO (09:03)
[2018-08-13] MEDS ORDERED: CYAN500T2 PO (09:03)
--- NOTE | 2018-08-13 09:06 | NUR ---
PATIENT STATES HE TAKES LASIX DAILY AND METOPROLOL BID, HE WAS UNSURE OF THE DOSES. I CALLED [facility] WHO VERIFIED THEY FILLED METOPROLOL TARTRATE 100MG BID #60 07-08-18 HOWEVER THEY DID NOT HAVE FUROSEMIDE ON FILE. [facility] HAS NOT FILLED ANYTHING FOR HIM SINCE MARCH AND THAT WAS [place]. THEY DID NOT HAVE ANY LASIX ON FILE EITHER. HE STATES HE TAKES VITAMIN C AND VITAMIN B12 OTC. Addendum: 08/13/18 at 0912 by DANAE CARO [facility] SPOKE WITH A NURSE AT [facility] AND THEY STATE THEY HAVE FUROSEMIDE 40MG DAILY ON HIS CHART HOWEVER HE HAS NOT BEEN SEEN SINCE JUN 2017 AND THEY DO NOT HAVE RECORD OF GIVING HIM ANY SUPPLY.
[2018-08-13] MEDS ORDERED: METO-451 PO (09:08)
--- NOTE | 2018-08-13 09:33 | Short Stay Summary-Hospitalist ---
History of Present Illness HPI/Chief Complaint CC: Syncope HPI: This is a 43-year-old white male who presented to the ER after syncopal episode and was found to have bradycardia. Cardiology was consulted and evaluated the patient to have volume depletion and to higher dose of beta helena. Patient was monitored closely given IV fluids and overall improved and was ready to go home. All medication was adjusted per cardiology recommendations. He will have close follow-up a [facility] and will be allowed to go back to work on Saturday. Source: patient Exam Limitations: no limitations Date Seen 08/13/18 Time Seen by a Provider: 10:00 Attending Physician Jessica Momin Julie A MD Referring Physician Date of Admission Aug 12, 2018 at 20:00 Home Medications & Allergies Home Medications Reviewed patient Home Medication Reconciliation performed by pharmacy medication reconciliations optical technician and/or nursing. Patients Allergies have been reviewed. Allergies Allergies Coded Allergies No Known Drug Allergies (Unverified01/14/17) Past Iaitsni-Gomjza-Xohjdx Hx Past Med/Social Hx: Reviewed Nursing Past Med/Soc Hx, Reviewed and Corrections made (amena) Patient Social History Marrital Status: Employed/Student: employed Alcohol Use: Denies Use Recreational Drug Use: No Type Used: Cigarettes 2nd Hand Smoke Exposure: Yes Physical Abuse Screen: No Sexual Abuse: No Recent Foreign Travel: No Contact w/other who traveled: No Recent Hopitalizations: No Recent Infectious Disease Expo: No Seasonal Allergies Seasonal Allergies: No Past Medical History Surgeries: Coronary Stent, Orthopedic Cardiac: Coronary Artery Disease, High Cholesterol, Hypertension Reproductive: No Psychosocial: Anxiety History of Blood Disorders: No Family History Heart Disease, CAD Under 55 Years Old Review of Systems Constitutional: see HPI, dizziness, weakness EENTM: no symptoms reported Respiratory: no symptoms reported Cardiovascular: no symptoms reported Gastrointestinal: no symptoms reported Genitourinary: no symptoms reported Musculoskeletal: no symptoms reported Skin: no symptoms reported Psychiatric/Neurological: Numbness, Weakness All Other Systems Reviewed Negative Unless Noted: Yes Physical Exam Physical Exam Vital Signs Vital Signs - First Documented 08/12/18 18:20 Temp 98.0 Pulse 124 Resp 16 B/P (MAP) 144/99 (114) Pulse Ox 96 O2 Delivery Room Air Capillary Refill : Less Than 3 Seconds Height, Weight, BMI Height: 6'1.00" Weight: 255lbs. 8.0oz. 115.158206gi; 33.8 BMI Method:Estimated General Appearance: No Apparent Distress, WD/WN Eyes: Bilateral Eye Normal Inspection, Bilateral Eye PERRL HEENT: PERRL/EOMI, TMs Normal, Normal ENT Inspection, Pharynx Normal Neck: Full Range of Motion, Normal Inspection, Non Tender, Supple, Carotid Bruit Respiratory: Chest Non Tender, Lungs Clear, Normal Breath Sounds, No Accessory Muscle Use, No Respiratory Distress Cardiovascular: Regular Rate, Rhythm, No Edema, No Gallop, No JVD, No Murmur, Normal Peripheral Pulses Gastrointestinal: Normal Bowel Sounds, No Organomegaly, No Pulsatile Mass, Non Tender, Soft Back: Normal Inspection, No CVA Tenderness, No Vertebral Tenderness Extremity: Normal Capillary Refill, Normal Inspection, Normal Range of Motion, Non Tender, No Calf Tenderness, No Pedal Edema Neurologic/Psychiatric: Alert, Oriented x3, No Motor/Sensory Deficits, Normal Mood/Affect Skin: Normal Color, Warm/Dry Lymphatic: No Adenopathy Results Results/Procedures Labs Laboratory Tests 08/12/18 18:30 08/13/18 03:15 Patient resulted labs reviewed. Short Stay Diagnosis Discharge Diagnosis-Short Stay Admission Diagnosis Syncope due to dehydration Bradycardia due to beta helena dose Smoker Final Discharge Diagnosis Syncope due to dehydration Bradycardia due to beta helena dose Smoker Conclusion Plan Discharge home Minimize beta helena dose Diagnosis/Problems Diagnosis/Problems (1) Syncope Status: Acute Qualifiers: Qualified Codes: R55 - Syncope and collapse (2) Bradycardia Status: Acute (3) Dehydration Status: Acute Clinical Quality Measures DVT/VTE Risk/Contraindication: Risk Factor Score Per Nursin RFS Level Per Nursing on Admit: 2=Moderate JESSICA MOMIN DO Aug 13, 2018 09:33
[2018-08-13] MEDS ORDERED: PANT20TA2 PO (10:17)
[2018-08-13] MEDS ORDERED: FLU QUADRIvalent (5+ YOA) 2018-2019 (AFLURIA) 0.5 ML IM ONE (12:30)
== END 2018-08-13 10:47 | disposition home or self-care (01) ==
LOC: EDUNIT# 18:17 → ER 18:18 → ICU 20:00
PROVIDERS: ADMIT Internal Medicine; ATTEND Internal Medicine
DX: E86.0 Dehydration (principal); R55 Syncope and collapse; R00.1 Bradycardia, unspecified; T44.7X5A Adverse effect of beta-adrenoreceptor antagonists, initial encounter; I25.10 Atherosclerotic heart disease of native coronary artery without angina pectoris; I10 Essential (primary) hypertension; E78.5 Hyperlipidemia, unspecified; F17.210 Nicotine dependence, cigarettes, uncomplicated; R74.8 Abnormal levels of other serum enzymes; Z82.49 Family history of ischemic heart disease and other diseases of the circulatory system; Z79.899 Other long term (current) drug therapy; Z95.5 Presence of coronary angioplasty implant and graft
CPT/HCPCS: 36415; 71045; 80053; 80061; 80320; 82550; 82553; 83735; 83874; 83880; 84443; 84484; 85025; 85610; 85730; 93005; 93041; 96374; 96376

== ENCOUNTER 2023-02-01 12:12 | Emergency (ER) | payer SELFPAY ==
[~2023-02-01] VITALS: Ht 182 cm; Wt 91.0 kg
[~2023-02-01 12:12] MED LIST changes: +ALPR.25T PO; -ALPR0.254 PO; +ASCO100024 PO; +ASPI-1238 PO; -ASPI-983 PO; +CYAN500T8 PO; -MAGN400T6 PO; -METO-395 PO; +METO-451 PO; +METO100T12 PO; +MGX400T PO; +MTP100TCR PO; +PANT20TA2 PO; +POTA-330 PO; -POTA-51 PO
[2023-02-01] MEDS ORDERED: PRD20T PO (13:32)
--- NOTE | 2023-02-01 13:33 | ED Upper Extremity ---
General Chief Complaint: Upper Extremity Stated Complaint: RT HAND NUMBNESS Nursing Triage Note: PT CO OF NUMBNESS OF R HAND AND FOREARM. STARTED THIS AM WHEN PT PUTS OBJECT IN R HAND HAND FLEXES INWARD. PT DENIES PAIN Source: patient Exam Limitations: no limitations History of Present Illness Date Seen by Provider: Feb 01, 2023 Time Seen by Provider: 13:00 Initial Comments Here with report of waking up with weakness and numbness in the right hand and right forearm. Went to bed last night at about 1030 and woke up this morning with the symptoms. [facility] go [facility] and was sent over here due to concerns for infection. Patient denies fever, wounds, redness or any other infective symptoms. 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 He denies specific repetitive motion stuff but does do a lot of lifting. Admits to drinking at least 6 beers per night of alcohol and does smoke. Denies vision or balance problems, weakness otherwise, speech problems or other concerns. Onset: just prior to arrival Pain/Injury Location: right forearm, right wrist Method of Injury: unknown Modifying Factors: Improves With Immobilization; Worse With Movement Allergies and Home Medications Allergies Coded Allergies: No Known Drug Allergies (Unverified , 01/14/17) Patient Home Medication List Home Medication List Reviewed: Yes Ascorbic Acid (Vitamin C) 1,000 Mg Tablet, 1,000 MG PO DAILY, (Reported) Entered as Reported by: DANAE CARO on 08/13/18 09 Cyanocobalamin (Vitamin B-12) (Vitamin B-12) 500 Mcg Tablet, 500 MCG PO DAILY, (Reported) Entered as Reported by: DANAE CARO on 08/13/18 09 Metoprolol Tartrate (Lopressor) 50 Mg Tablet, 50 MG PO BID Prescribed by: TREV BAJWA on 08/13/18 0908 Pantoprazole Sodium (Protonix) 20 Mg Tablet.dr, 20 MG PO DAILY Prescribed by: KENDRA OLIVERA on 08/13/18 1017 Prednisone (Prednisone) 20 Mg Tab, 40 MG PO DAILY Prescribed by: CISCO SCHMID on 02/01/23 1332 Review of Systems Constitutional: see HPI; No dizziness, No weakness EENTM: no symptoms reported Cardiovascular: no symptoms reported Gastrointestinal: No nausea, No vomiting Musculoskeletal: see HPI Psychiatric/Neurological: See HPI, Numbness (Top of right forearm) Past Nyhcevv-Moeujw-Gyrctz Hx Patient Social History Tobacco Use?: Yes Tobacco type used: Cigarettes Smoking Status: Current Everyday Smoker Substance use?: No Alcohol Use?: Yes Alcohol Frequency: Daily Pt feels they are or have been: No Seasonal Allergies Seasonal Allergies: No Past Medical History Surgery/Hospitalization HX: R KNEE ARTHROSCOPY, HTN Surgeries: Yes Cardiac, Orthopedic Respiratory: Yes (tobaccoism) Cardiac: Yes (cardiomegaly) Coronary Artery Disease, High Cholesterol, Hypertension Neurological: No Reproductive Disorders: No Genitourinary: No Gastrointestinal: No Musculoskeletal: No Endocrine: No HEENT: No Cancer: No Psychosocial: No Anxiety Integumentary: No Blood Disorders: No Family Medical History Reviewed Nursing Family Hx Heart Disease, CAD Under 55 Years Old Physical Exam Vital Signs Vital Signs - First Documented 02/01/23 12:15 Temp 36.6 Pulse 67 Resp 18 B/P (MAP) 143/84 (103) Pulse Ox 100 Capillary Refill : Less Than 3 Seconds Height, Weight, BMI Height: 6'1.00" Weight: 255lbs. 8.0oz. [id number]; 27.00 BMI Method:Estimated General Appearance: WD/WN, no apparent distress HEENT: PERRL/EOMI Neck: non-tender, full range of motion, supple, normal inspection Cardiovascular: regular rate, rhythm, no murmur Respiratory: lungs clear, normal breath sounds Elbow/Forearm: no evidence of injury, limited ROM (Does have difficulty with flexing wrist but can. Vehicle Check In Clerk strength slightly less on the right.), soft tissue tenderness Hand: Right, stiffness Neurologic/Psychiatric: alert, normal mood/affect, oriented x 3, other (No pronator drift. [id number] is normal bilaterally) Skin: normal color, warm/dry Progress/Results/Core Measures Results/Orders Vital Signs/I&O 02/01/23 12:15 Temp 36.6 Pulse 67 Resp 18 B/P (MAP) 143/84 (103) Pulse Ox 100 Blood Pressure Mean: 103 Progress Progress Note : Progress Note Seen and evaluated. No obvious signs of infection or concerns for infection. Patient has findings consistent with local focal neurodeficit similar to carpal tunnel syndrome. We did discuss at length regarding further work-up on neurological deficit including stroke evaluation. Last known well time was 1030 last night. He is well outside the window for tPA. In discussion with him, he thinks this is more local and not very related is okay with foregoing CT of the head for which I agree although this was considered. No indication for further imaging or work-up right now he has no findings of infective symptoms. We will treat with outpatient steroids and wrist splint and see if that improves his symptoms and he will return if he has any worsening or strokelike symptoms. This was discussed with patient and family who both agree. Discharged home with return precautions, OTC instructions and follow-up plan. Departure Impression Primary Impression: Carpal tunnel syndrome of right wrist Additional Impression: Paresthesia Disposition: HOME, SELF-CARE Condition: Stable Departure-Patient Inst. Decision time for Depature: 13:30 Referrals: [facility] (PCP/Family) Primary Care Physician Patient Instructions: Carpal Tunnel Syndrome (DC), Paresthesia (DC) Add. Discharge Instructions: All discharge instructions reviewed with patient and/or family. Voiced understanding. Take medications as directed. Use wrist splints especially while sleeping to minimize symptoms. Follow-up with your doctor in a few days for recheck if not improved. Return for any increasing weakness, numbness, vision or balance problems, speech problems, difficulty with walking or other concerns as needed. You may take Tylenol/acetaminophen 1000 mg every 8 hours as needed for pain. Scripts Prednisone (Prednisone) 20 Mg Tab 40 MG PO DAILY, #14 TAB 0 Refills Prov: CISCO SCHMID MD 02/01/23 Work/School Note: Work Release Form Date Seen in the Emergency Department: Feb 01, 2023 Return to Work: Feb 04, 2023 Restrictions: No Restrictions CISCO SCHMID MD Feb 01, 2023 13:33
[2023-02-01 14:02] VITALS: BP 143/84
== END 2023-02-01 14:03 | disposition home or self-care (01) ==
LOC: EDUNIT# 12:12 → ER 12:15
DX: G56.01 Carpal tunnel syndrome, right upper limb (principal); F17.210 Nicotine dependence, cigarettes, uncomplicated
CPT/HCPCS: 99283